=== PATIENT | female | born 1970 | race Caucasian/White ===

== ENCOUNTER → 2017-07-22 | Outpatient (CLI) | payer BC ==
--- NOTE | 2017-07-22 10:27 | REP ---
Clinical: Pain. Technique: Neutral and frog lateral views of the left hip. Findings: Osseous structures are intact and there is no acute fracture dislocation. Joint space appears normal for age. No overt osteoarthritic degenerative changes are appreciated. Surrounding soft tissues are unremarkable. Impression: Normal, age-appropriate left hip radiographs. Signed by Denver Bass MD 07/22/2017 10:19 A
--- NOTE | 2017-07-22 10:29 | REP ---
Clinical: Neck pain with numbness to the upper extremities. Technique: AP, lateral, flexion/extension, bilateral oblique and open mouth views of the cervical spine. Findings: Moderate focal degenerative disc osteophyte complex at the C4-5 level and to a lesser extent the C3-4 and C5-6 level. Findings include anterior spurring with endplate sclerosis and minimal disc space narrowing. Remainder examination appears normal for age. Alignment and lordosis maintained. Open mouth view demonstrates normal C1-C2 articulation and odontoid process. Subtle left neural foraminal narrowing at the C4-5 level suggested on oblique view. Impression: Moderate focal degenerative changes as described above. Normal alignment. Signed by Denver Bass MD 07/22/2017 10:21 A
--- NOTE | 2017-07-22 12:27 | REPMRS ---
Patient History The patient states she had a clinical breast exam in July 2017. Family history of prostate cancer in father at age 67 and ovarian cancer in mother at age 70. Digital Mammo Screening Bilat: July 22, 2017 - Exam #: [id number] Bilateral CC and MLO view(s) were taken. Technologist: Tori Grijalva, Technologist Prior study comparison: July 07, 2016, bilateral digital mammo screening bilat performed at [facility]. June 10, 2015, bilateral digital mammo screening bilat performed at [facility]. May 30, 2014, digital mammo diagnostic bilateral performed at [facility]. FINDINGS: The breast tissue is heterogeneously dense. This may lower the sensitivity of mammography. There is a moderate amount of heterogeneously dense fibroglandular tissue which is fairly symmetric. There is no interval development of dominant mass, architectural distortion, or clustered microcalcification typical of malignancy. There has been no change in the appearance of the mammogram from the prior studies. ASSESSMENT: BI-RADS/ACR category 1 mammogram. Negative. Recommendation Routine screening mammogram of both breasts in 1 year (for women over age 40). This mammogram was interpreted with the aid of an FDA-approved computer-aided dectection system. Electronically Signed By: Santos Dunbar MD 07/22/17 [id number]
== END ==
LOC: M RAD 09:15
PROVIDERS: ATTEND Family Medicine
DX: Z12.39 Encounter for other screening for malignant neoplasm of breast (principal)

== ENCOUNTER → 2018-08-18 | Outpatient (CLI) | payer BC | LOC: M RAD 14:17 | DX: Z12.31 Encounter for screening mammogram for malignant neoplasm of breast (principal); Z80.41 Family history of malignant neoplasm of ovary; Z80.42 Family history of malignant neoplasm of prostate | CPT/HCPCS: 77067 ==

== ENCOUNTER 2018-10-24 10:46 | Day surgery (SDC) | payer BC ==
[~2018-10-24] VITALS: Ht 165.1 cm; Wt 80.3 kg
[~2018-10-24 10:46] MED LIST: DOXY-350 PO; LEVO25TA5 PO; LEXA1TAB PO; MULT1TAB10 PO; OMEP40CA2 PO; PROBCAP4 PO; VITA200016 PO; ZYRT10CA5 PO
[2018-10-24] MEDS ORDERED: NS 1,000 ML IV ONE (11:00)
[2018-10-24] MEDS ORDERED: LIDOCAINE 2% INJ 100 MG/5 ML SDV (FOR ANES.) As Ordered ONE (12:38)
[2018-10-24] MEDS ORDERED: PROPOFOL 500 MG/50 ML VIAL As Ordered ONE (12:38)
--- NOTE | 2018-10-24 12:58 | ROOR ---
Patient Name: Irene Baird Procedure Date: 10/24/2018 12:14 PM Date of : 1970 Age: 47 Room: [facility] Gender: Female Note Status: Finalized Procedure: Upper GI endoscopy Indications: Heartburn, Suspected gastro-esophageal reflux disease Providers: Gage Grijalva MD Referring MD: PATRICE LYONS DO Requesting Provider: Medicines: Monitored Anesthesia Care Complications: No immediate complications. Procedure: Pre-Anesthesia Assessment: - Prior to the procedure, a History and Physical was performed, and patient medications and allergies were reviewed. The patient is competent. The risks and benefits of the procedure and the sedation options and risks were discussed with the patient. All questions were answered and informed consent was obtained. Patient identification and proposed procedure were verified by the physician, the nurse and the anesthesiologist in the procedure room. Mental Status Examination: alert and oriented. Airway Examination: normal oropharyngeal airway and neck mobility. Respiratory Examination: clear to auscultation. CV Examination: normal. Prophylactic Antibiotics: The patient does not require prophylactic antibiotics. Prior Anticoagulants: The patient has taken no previous anticoagulant or antiplatelet agents. ASA Grade Assessment: II - A patient with mild systemic disease. After reviewing the risks and benefits, the patient was deemed in satisfactory condition to undergo the procedure. The anesthesia plan was to use monitored anesthesia care (MAC). Immediately prior to administration of medications, the patient was re-assessed for adequacy to receive sedatives. The heart rate, respiratory rate, oxygen saturations, blood pressure, adequacy of pulmonary ventilation, and response to care were monitored throughout the procedure. The physical status of the patient was re-assessed after the procedure. The Endoscope was introduced through the mouth, and advanced to the second part of duodenum. The upper GI endoscopy was accomplished without difficulty. The patient tolerated the procedure well. Findings: The examined esophagus was normal. The Z-line was regular and was found 40 cm from the incisors. Diffuse mild inflammation characterized by erosions, erythema and granularity was found in the gastric body and in the gastric antrum. Biopsies were taken with a cold forceps for Helicobacter pylori testing. Verification of patient identification for the specimen was done by the physician, nurse and electronics maintenance technician using the patient's name, date and medical record number. Estimated blood loss was minimal. The duodenal bulb and second portion of the duodenum were normal. Biopsies for histology were taken with a cold forceps for evaluation of celiac disease. Impression: - Normal esophagus. - Z-line regular, 40 cm from the incisors. - Gastritis. Biopsied. - Normal duodenal bulb and second portion of the duodenum. Biopsied. Recommendation: - Patient has a contact number available for emergencies. The signs and symptoms of potential delayed complications were discussed with the patient. Return to normal activities tomorrow. Written discharge instructions were provided to the patient. - Resume previous diet. - Continue present medications. - Await pathology results. - Follow an antireflux regimen. - Based on the biopsy results you will receive a phone call from GI clinic in 2-3 weeks to review the pathology results AND/OR your results will be faxed to your Primary care physician. - Return to primary care physician. Gage Grijalva MD Gage Grijalva MD 10/24/2018 12:57:32 PM This report has been signed electronically. Number of Addenda: 0 Note Initiated On: 10/24/2018 12:14 PM Estimated Blood Loss: Estimated blood loss was minimal.
--- NOTE | 2018-10-24 13:01 | ROOR ---
Patient Name: Irene Baird Procedure Date: 10/24/2018 12:15 PM Date of : 1970 Age: 47 Room: [facility] Gender: Female Note Status: Finalized Procedure: Colonoscopy Indications: Screening for colorectal malignant neoplasm ( as per the New ACS recommendations) Providers: Gage Grijalva MD Referring MD: PATRICE LYONS DO Requesting Provider: Medicines: Monitored Anesthesia Care Complications: No immediate complications. Procedure: Pre-Anesthesia Assessment: - Prior to the procedure, a History and Physical was performed, and patient medications and allergies were reviewed. The patient is competent. The risks and benefits of the procedure and the sedation options and risks were discussed with the patient. All questions were answered and informed consent was obtained. Patient identification and proposed procedure were verified by the physician, the nurse and the anesthesiologist in the procedure room. Mental Status Examination: alert and oriented. Airway Examination: normal oropharyngeal airway and neck mobility. Respiratory Examination: clear to auscultation. CV Examination: normal. Prophylactic Antibiotics: The patient does not require prophylactic antibiotics. Prior Anticoagulants: The patient has taken no previous anticoagulant or antiplatelet agents. ASA Grade Assessment: II - A patient with mild systemic disease. After reviewing the risks and benefits, the patient was deemed in satisfactory condition to undergo the procedure. The anesthesia plan was to use monitored anesthesia care (MAC). Immediately prior to administration of medications, the patient was re-assessed for adequacy to receive sedatives. The heart rate, respiratory rate, oxygen saturations, blood pressure, adequacy of pulmonary ventilation, and response to care were monitored throughout the procedure. The physical status of the patient was re-assessed after the procedure. The Colonoscope was introduced through the anus and advanced to the terminal ileum, with identification of the appendiceal orifice and IC valve. The colonoscopy was performed without difficulty. The patient tolerated the procedure well. The quality of the bowel preparation was good. The terminal ileum, ileocecal valve, appendiceal orifice, and rectum were photographed. Scope insertion time was 3 minutes. Scope withdrawal time was 9 minutes. The total duration of the procedure was 12 minutes. Findings: The perianal and digital rectal examinations were normal. The terminal ileum appeared normal. A diminutive polyp was found in the descending colon. The polyp was sessile. The polyp was removed with a cold biopsy forceps. Resection and retrieval were complete. Verification of patient identification for the specimen was done by the physician and nurse using the patient's name, date and medical record number. Estimated blood loss was minimal. Non-bleeding external and internal hemorrhoids were found during retroflexion. The hemorrhoids were medium-sized. The exam was otherwise without abnormality on direct and retroflexion views. Impression: - The examined portion of the ileum was normal. - One diminutive polyp in the descending colon, removed with a cold biopsy forceps. Resected and retrieved. - Non-bleeding external and internal hemorrhoids. - The examination was otherwise normal on direct and retroflexion views. Recommendation: - Patient has a contact number available for emergencies. The signs and symptoms of potential delayed complications were discussed with the patient. Return to normal activities tomorrow. Written discharge instructions were provided to the patient. - Resume previous diet. - Continue present medications. - Await pathology results. - Repeat colonoscopy in 10 years for screening purposes. - Based on the biopsy results you will receive a phone call from GI clinic in 2-3 weeks to review the pathology results AND/OR your results will be faxed to your Primary care physician. - Return to primary care physician. Gage Grijalva MD Gage rGijalva MD 10/24/2018 1:01:19 PM This report has been signed electronically. Number of Addenda: 0 Note Initiated On: 10/24/2018 12:15 PM Estimated Blood Loss: Estimated blood loss was minimal.
[2018-10-24 13:33] VITALS: BP 114/75
== END 2018-10-24 13:32 | disposition home or self-care (01) ==
LOC: M OPP 10:46
PROVIDERS: ATTEND Internal Medicine Gastroenterology
DX: Z12.11 Encounter for screening for malignant neoplasm of colon (principal); K64.8 Other hemorrhoids; D12.4 Benign neoplasm of descending colon; K29.70 Gastritis, unspecified, without bleeding; R12 Heartburn; E03.9 Hypothyroidism, unspecified; Z79.899 Other long term (current) drug therapy

== ENCOUNTER → 2019-08-24 | Outpatient (CLI) | payer BC ==
[~2019-08-24] MED LIST changes: -OMEP40CA2 PO; +OMEP40CA97 PO
--- NOTE | 2019-08-24 17:25 | REPMRS ---
Patient History The patient states she had a clinical breast exam in August 2019. Family history of ovarian cancer at age 70 in mother, prostate cancer at age 67 in father. Digital Mammo Screening Bilat: August 24, 2019 - Exam #: [id number] Bilateral CC and MLO view(s) were taken. Technologist: Thania Elizondo, Technologist Prior study comparison: August 18, 2018, bilateral digital mammo screening bilat performed at [facility]. July 22, 2017, bilateral digital mammo screening bilat performed at [facility]. July 07, 2016, bilateral digital mammo screening bilat performed at [facility]. FINDINGS: The breast tissue is heterogeneously dense. This may lower the sensitivity of mammography. There is a moderate amount of heterogeneously dense fibroglandular tissue which is fairly symmetric. There is no interval development of dominant mass, architectural distortion, or grouped microcalcification typical of malignancy. There has been no change in the appearance of the mammogram from the prior studies. 3-D tomosynthesis shows no additional findings. Assessment: BI-RADS/ACR category 1 mammogram. Negative Mammogram. Recommendation Routine screening mammogram of both breasts in 1 year (for women over age 40). This patient's Lifetime Breast Cancer RIsk is estimated at 11.4 %. This mammogram was interpreted with the aid of an FDA-approved computer-aided dectection system. Electronically Signed By: Santos Dunbar MD 08/24/19 [id number]
== END ==
LOC: M RAD 13:29
PROVIDERS: ATTEND Internal Medicine
DX: Z12.31 Encounter for screening mammogram for malignant neoplasm of breast (principal)